=== PATIENT | male | born 1980 | race African-American/Black ===

== ENCOUNTER 2018-11-19 23:28 | Inpatient (IN) | payer SELFPAY ==
[~2018-11-19] VITALS: Ht 180.3 cm; Wt 103.4 kg
[2018-11-20] MEDS ORDERED: KETOROLAC 15MG/ML VIAL IV ONE (02:45)
[2018-11-20] MEDS ORDERED: LEVOFLOXACIN 750MG PREMIX 150 ML IV ONE (02:45)
[2018-11-20 02:57] LABS: CHLORIDE 101 mEq/L (98-107)
[2018-11-20 03:05] LABS: BASOPHILS % 0.9 % (0.0-2.0); EOSINOPHILS % 1.9 % (0.0-5.0); HEMOGLOBIN. 14.8 g/dL (14.0-18.0); LYMPHOCYTES % 17.8 % (20.0-50.0); MEAN CORPUSCULAR HEMOGLOBIN 25.9 pg (28.0-32.0); MEAN CORPUSCULAR VOLUME 78.8 fL (80.0-94.0); MEAN PLATELET VOLUME 8.2 fl (7.4-10.4); MONOCYTES % 8.4 % (2.0-8.0); PLATELET 213 x1000/uL (130-400); RED BLOOD CELL COUNT 5.71 mill/uL (4.7-6.1); RED CELL DISTRIBUTION WIDTH 14.4 % (11.6-14.6)
[2018-11-20 04:07] LABS: CREATINE KINASE 264 IU/L (39-308)
[2018-11-20] MEDS ORDERED: IOHEXOL-350 100 ML BOTTLE ONE (05:16)
[2018-11-20] MEDS ORDERED: ENOXAPARIN 100MG/ML SYR SUBCUT ONE (05:45)
[2018-11-20 05:54] LABS: CLARITY URINE CLEAR (CLEAR); COLOR URINE YELLOW (YELLOW); KETONES URINE NEGATIVE (NEGATIVE); LEUKOCYTE ESTERASE URINE NEGATIVE (NEGATIVE); NITRITE URINE NEGATIVE (NEGATIVE); OCCULT BLOOD URINE NEGATIVE (NEGATIVE); PROTEIN URINE NEGATIVE (NEGATIVE); SPECIFIC GRAVITY URINE 1.016 (1.005-1.030); UROBILINOGEN URINE 0.2 E.U./dL (0.2-1.0)
[2018-11-20 06:54] LABS: *BARBITURATES SCREEN URINE NEGATIVE (NEGATIVE); *BENZODIAZEPINES SCREEN URINE NEGATIVE (NEGATIVE); *COCAINE SCREEN URINE NEGATIVE (NEGATIVE); METHADONE URINE SCREEN NEGATIVE (NEGATIVE); OPIATES URINE SCREEN NEGATIVE (NEGATIVE)
[2018-11-20 06:56] LABS: *AMPHETAMINES SCREEN URINE NEGATIVE (NEGATIVE); CANNABINOID URINE SCREEN NEGATIVE (NEGATIVE); PHENCYCLIDINE URINE SCREEN NEGATIVE (NEGATIVE)
[2018-11-20] MEDS ORDERED: ACETAMINOPHEN 325MG TABLET PO PRN (08:15)
[2018-11-20] MEDS ORDERED: HYDROCODONE/ACETAMINOPHEN 5/325MG TABLET PO PRN (08:15)
[2018-11-20] MEDS ORDERED: CLONIDINE 0.1MG TABLET PO PRN (08:15)
[2018-11-20] MEDS ORDERED: GUAIFENESIN 200MG/10ML SUGAR FREE UDC PO PRN (08:15)
[2018-11-20] MEDS ORDERED: DOCUSATE SODIUM 100MG CAPSULE PO PRN (08:15)
[2018-11-20] MEDS ORDERED: ONDANSETRON HCL 4MG/2ML INJ IV PRN (08:15)
[2018-11-20 11:36] VITALS: BP 109/71
[2018-11-20 11:38] VITALS: BP 109/71
[2018-11-20 12:00] VITALS: BP 122/76
[2018-11-20] MEDS ORDERED: IBUP-2028 MT (12:55)
[2018-11-20] MEDS ORDERED: INFLUENZA VIRUS VACCINE(AFLURIA) 0.5ML SYR IM ONE (13:00)
[2018-11-20] MEDS: HYDROMORPHONE HCL/PF 2MG/ML CPJ IV PRN ×2 (15:34→19:28)
[2018-11-20 16:03] VITALS: BP 121/66
[2018-11-20 16:38] LABS: CREATINE KINASE MB FRACTION < 1.0 ng/mL (0.5-3.6)
[2018-11-20 16:44] LABS: CREATINE KINASE 208 IU/L (39-308)
[2018-11-20] MEDS ORDERED: IPRATROPIUM/ALBUTEROL 0.5-3(2.5)MG/3ML NEB HHN PRN (17:00)
[2018-11-20 20:00] VITALS: BP 124/62
[2018-11-21] VITALS (9 sets, daily range): BP systolic 120–126; BP diastolic 50–83
[2018-11-21 00:28] LABS: CREATINE KINASE 174 IU/L (39-308); CREATINE KINASE MB FRACTION < 1.0 ng/mL (0.5-3.6)
[2018-11-21] MEDS ORDERED: LEVOFLOXACIN 500MG PREMIX 100 ML IV SCH (02:00)
[2018-11-21 06:22] LABS: BASOPHILS % 0.2 % (0.0-2.0); EOSINOPHILS % 0.8 % (0.0-5.0); HEMATOCRIT. 41.4 % (42.0-52.0); HEMOGLOBIN. 13.8 g/dL (14.0-18.0); MEAN CORPUSCULAR HEMOGLOBIN 26.1 pg (28.0-32.0); MEAN CORPUSCULAR VOLUME 78.7 fL (80.0-94.0); MEAN PLATELET VOLUME 8.1 fl (7.4-10.4); MONOCYTES % 7.4 % (2.0-8.0); NEUTROPHILS % 81.6 % (40.0-76.0); PLATELET 207 x1000/uL (130-400); RED BLOOD CELL COUNT 5.27 mill/uL (4.7-6.1); RED CELL DISTRIBUTION WIDTH 14.2 % (11.6-14.6)
[2018-11-21 06:28] LABS: CHLORIDE 100 mEq/L (98-107)
[2018-11-21 06:43] LABS: LDL CHOLESTEROL 81 mg/dL (5-100)
[2018-11-21 06:44] LABS: HDL CHOLESTEROL 66 mg/dL (40-59)
[2018-11-21] MEDS ORDERED: ENOXAPARIN 100MG/ML SYR SUBCUT SCH (14:32)
[2018-11-21] MEDS: HYDROMORPHONE HCL/PF 2MG/ML CPJ IV PRN (20:05)
== END 2018-11-21 22:27 | disposition home or self-care (01) | DRG 134 ==
LOC: ER 23:28 → 7WST 11-20 05:56 → EDBEDREQTM 11-20 06:01 → EDBEDREQ 11-20 06:01 → SUPCPDRO 11-20 08:03 → ENRESERV 11-20 08:41
PROVIDERS: ADMIT Hospitalist; ATTEND Hospitalist
DX: I26.99 Other pulmonary embolism without acute cor pulmonale (principal); J96.00 Acute respiratory failure, unspecified whether with hypoxia or hypercapnia; J98.11 Atelectasis; J18.1 Lobar pneumonia, unspecified organism; Z79.899 Other long term (current) drug therapy
CPT/HCPCS: 36415; 71045; 71275; 80061; 80305; 82550; 82553; 83605; 83880; 84484; 85379; 90686; 93005; 93306; 93970; 99285; J1170; J1650; J1885; J1956; J7050; Q9967